=== PATIENT | female | born 1945 | race Caucasian/White ===

== ENCOUNTER 2017-06-19 16:32 | Emergency (ER) | payer SELFPAY ==
[~2017-06-19] VITALS: Ht 165.1 cm; Wt 74.0 kg
[2017-06-19 16:45] VITALS: BP 175/93; PULSE 78; RESP 22; TEMP 98.2; O2SAT 99
--- NOTE | 2017-06-19 17:09 | PD ---
Physical Exam Date Seen by Provider: Jun 19, 2017 Time Seen by Provider: 17:05 Narrative 71 y/o here with Lower back pain since 11 am this am. Radiates into both buttocks. No Weakness. Started with Moving a Portable Sewing machine. Has Hx. Low Back Pain but this is worse. Took 2 ibuprofen without improvement. Has Hx of needing Flexeril in the past with good results. 7/10 pain with movement. Vital signs reviewed. Patient stable. Awaiting Bed placement. Data Data Last Documented VS Vital Signs Date Time Temp Pulse Resp B/P Pulse Ox O2 Delivery O2 Flow Rate FiO2 06/19/17 16:45 98.2 78 22 175/93 99 MDM Medical Record Reviewed: Yes Supervised Visit with BRIDGET: Yes Condition: Stable Raffi Phan Jun 19, 2017 17:09
== END 2017-06-19 19:27 | disposition left against medical advice (07) ==
LOC: NED 16:32
DX: M54.5 Low back pain (principal)
CPT/HCPCS: 99281

== ENCOUNTER 2018-08-22 05:47 | Inpatient (IN) ==
[2018-08-22] MEDS ORDERED: Metoprolol Tartrate 25 MG Tablet PO ONE (06:12)
[2018-08-22] MEDS ORDERED: Chlorhexidine Gluconate 2% 1 Pack (2 Cloths) TOPICAL ONE (06:12)
[2018-08-22] MEDS ORDERED: Gentamicin Inj 120 MG in Sodium Chlor 0.9% Inj 100 ML IV.SIG PRN (06:16)
[2018-08-22] MEDS ORDERED: Sodium Chlor 0.9% Inj 500 ML IV.SIG SCH (07:00)
[2018-08-22] MEDS ORDERED: Phenylephrine/NS 1000 MCG/10ML Syringe IV.PUSH ONE (09:06)
[2018-08-22] MEDS ORDERED: Lidocaine PF 1% Inj 5 ML Syringe OTHER ONE (09:06)
[2018-08-22] MEDS ORDERED: Artificial Tears Opth Oint 3.5 GM Tube ONE (09:36)
[2018-08-22] MEDS ORDERED: Sugammadex Inj 200 MG/2 ML Vial IV.PUSH ONE (09:36)
[2018-08-22] MEDS ORDERED: Estrogens Congugated Vag Cream w/app 30 GM Tube VAGINAL ONE (10:58)
--- NOTE | 2018-08-22 12:44 | P.OP ---
- Preoperative Diagnosis (1) Cystocele and rectocele with incomplete uterovaginal prolapse (2) Family history of ovarian cancer - Postoperative Diagnosis (1) Cystocele and rectocele with incomplete uterovaginal prolapse (2) Family history of ovarian cancer Date of procedure: 08/22/18 Anesthesia: GETA Surgeon: Arsenio Mathur MD Estimated blood loss (mL): 150 Operation and Findings: Findings exam under anesthesia revealed a atrophic vagina with a large cystocele and rectocele. The cervix came down to 2 cm from the introitus. The cervix was nulliparous. The uterus is normal size shape and consistency the adnexa were negative for masses laparoscopic exam revealed a small uterus absent left tube and ovary right tube and ovary were normal for a menopausal patient the ureter on the right side was clearly identified the cul-de-sacs were clean upper abdomen was normal Complications were none Counts were correct Procedure in detail Patient was taken to the operating theater and identified by name band and verbally she was given a general anesthetic intubated and prepped and draped in the usual sterile fashion for a laparoscopic vaginal hysterectomy. A timeout was taken. An examination under anesthesia was carried with a speculum with the above findings. The anterior lip of the cervix was grasped with a single- tooth tenaculum and a Hulka clamp was placed without difficulty. Attention was turned to the umbilical area she had a large incision from the umbilicus to the symphysis pubis in the midline therefore I did not want to go in this area. A small 5 mm incision was made above the umbilicus 3 fingerbreadths. The trocar was inserted inserted under direct vision without difficulty and a pneumoperitoneum was created with 3 L of CO2. The 5 mm trochars were then placed inferior lateral to the umbilicus bilaterally. Using the harmonic scalpel we took the round ligaments down without difficulty. The left ovary and tube were surgically absent and this broad ligament was taken down with a harmonic scalpel to the level of the internal cervical os. On the right side we identified the infundibulopelvic ligament and took this down with the harmonic scalpel after identifying the ureter. The broad ligament on right was then taken down to the level of the internal cervical. And the uterine vessels were taken bilaterally with the harmonic scalpel at the level of the internal cervical loss. The bladder flap was more fully developed and pushed well out of harm's way and the cardinal ligament was taken down with the harmonic scalpel. Once we reached the apex of the vagina a small rent was placed into the vaginal canal. At this point we went below make a circumferential incision around the cervix and the vaginal cuff was closed with 0 Vicryl pop offs. At this point we started the anterior repair 1 cm below the urethra the mucosa was nicked in a sagittal fashion and the mucosa was taken off the endopelvic fascia by sharp and blunt dissection and the mucosa was incised in a sagittal fashion to the level of the vaginal cuff. The endovaginal fascia was then plicated with 2-0 Vicryl in interrupted fashion. Attention was turned to the posterior vaginal wall the perineum was incised in a coronal fashion and the posterior vaginal mucosa was taken off of the endopelvic fascia with blunt and sharp dissection and the incision was carried up to the vaginal cuff. Fascia was then plicated with 2-0 Vicryl in interrupted fashion the excess mucosa was removed and the mucosa was repaired with 3-0 Vicryl in interrupted fashion with good result. Making the introitus a much smaller and hemostasis was excellent the vagina was irrigated large amount of fluid and vaginal packing was placed. At this point we went back to the laparoscope and there was a small rent in the vaginal wall where we could see white Premarin cream coming out. We went below and using the speculum and a 2-0 Vicryl repair this small hole with laparoscopic visualization. We replaced the primary embedded vaginal packing and went up to the laparoscope and irrigated the pelvis with a large amount of fluids. Hemostasis was excellent all surgical sites were dry there appeared to be no more primary exuding into the peritoneal cavity at this time. The laparoscope was removed under direct vision the pneumoperitoneum was released. The surgical incisions were repaired with a 4-0 Monocryl in a subcuticular manner. Patient went to the recovery room in good condition.
[2018-08-22] MEDS ORDERED: HYDROmorphone PF Inj 2 MG/ML Vial IV.PUSH PRN (12:45)
[2018-08-22] MEDS ORDERED: Zolpidem Tartrate 5 MG Tablet PO PRN (12:45)
[2018-08-22] MEDS ORDERED: fentaNYL Citrate Inj 100 MCG/2 ML Ampul ONE ×2 (12:50)
[2018-08-22] MEDS ORDERED: HYDROmorphone PF Inj 2 MG/ML Vial ONE (12:54)
[2018-08-22] MEDS ORDERED: *Meperidine Inj 25 MG/ML Vial PERIprocedural Use ONLY ONE ×2 (12:58→12:59)
[2018-08-22] MEDS: Ibuprofen 600 MG Tablet PO PRN (18:24)
[2018-08-23] MEDS: Ibuprofen 600 MG Tablet PO PRN ×4 (00:53→22:26)
[2018-08-23 05:50] LABS: Baso % (Auto) 0.3 % (0.0-2.0); Eos # (Auto) 0.1 th/mm3 (0.0-0.4); Eos % (Auto) 0.7 % (0.0-4.0); Hematocrit 39.2 % (35.0-46.0); Hemoglobin 13.1 gm/dL (11.6-15.3); Lymph % (Auto) 20.4 % (9.0-44.0); Mean Corpuscular HGB Conc 33.5 % (32.0-36.0); Mean Corpuscular Hemoglobin 28.6 pg (27.0-34.0); Mean Corpuscular Volume 85.3 fL (80.0-100.0); Mono # (Auto) 0.9 th/mm3 (0.0-0.9); Mono % (Auto) 9.5 % (0.0-8.0); Neut # (Auto) 6.9 th/mm3 (1.8-7.7); Neut % (Auto) 69.1 % (16.0-70.0); Platelet Count 183 th/mm3 (150-450); Red Cell Distribution Width 14.1 % (11.6-17.2)
[2018-08-23 06:18] LABS: Calcium 8.4 mg/dL (8.5-10.1); Carbon Dioxide 23.6 meq/L (21.0-32.0); Potassium 3.8 meq/L (3.5-5.1)
--- NOTE | 2018-08-23 10:32 | P.PNOB ---
Subjective Post op day: 1 Objective Vital Signs/I&O: Vital Signs 08/22/18 12:43 08/22/18 12:44 08/22/18 12:45 Temperature 98.1 F Pulse Rate 85 90 87 Respiratory Rate 16 16 Blood Pressure 188/81 H 178/84 H 167/81 H Pulse Oximetry 100 100 100 08/22/18 13:00 08/22/18 13:15 08/22/18 13:30 Temperature Pulse Rate 88 90 90 Respiratory Rate 16 17 17 Blood Pressure 178/82 H 149/69 H 150/69 H Pulse Oximetry 100 99 99 08/22/18 13:45 08/22/18 14:00 08/22/18 14:15 Temperature 98.2 F Pulse Rate 88 93 H Respiratory Rate 17 18 Blood Pressure 143/69 H 142/73 H Pulse Oximetry 100 98 96 08/22/18 14:40 08/22/18 16:16 08/22/18 20:26 Temperature 97.7 F 98.7 F Pulse Rate 82 82 90 Respiratory Rate 20 18 Blood Pressure 160/78 H 145/93 H 144/80 H Pulse Oximetry 97 94 L 08/23/18 00:06 08/23/18 03:45 Temperature 99.4 F 99.3 F Pulse Rate 93 H 89 Respiratory Rate 17 18 Blood Pressure 139/69 147/73 H Pulse Oximetry 94 L 95 Intake & Output 08/22/18 08/23/18 08/23/18 18:59 06:59 18:59 Intake Total 1400 / 1400 1000 / 1000 Output Total 1400 / 1400 1800 / 1800 Balance 0 / 0 -800 / -800 Intake: IV 1000 / 1000 LR 1000 mL Inj 1,000 ML @ 125 1000 / 1000 mls/hr IV.CONT .Q8H [facility] Rx#: [id number] Anesthesia Amount 1400 / 1400 Output: Urine 850 / 850 Estimated Blood Loss 700 / 700 Urine Amount (Catheter) 700 / 700 950 / 950 Indwelling Urethral Catheter 700 / 700 950 / 950 Result Diagrams: 08/23/18 05:16 08/23/18 05:16 Objective Remarks: GENERAL: Well-nourished, well-developed patient. CARDIOVASCULAR: Regular rate and rhythm without murmurs, gallops, or rubs. RESPIRATORY: Breath sounds equal bilaterally. No accessory muscle use. ABDOMEN/GI: Abdomen soft, non-tender, bowel sounds present. Incision: Clean, dry and intact. Srivastava Cath to BSD, clear yellow urine EXTREMITIES: No cyanosis or edema, non-tender, without signs of DVT. Medications and IVs: Active Medications Diphenhydramine HCl (Benadryl) 25 mg PO Q6H PRN PRN Reason: ITCHING Hydromorphone HCl (Dilaudid Pf Inj) 1 mg IV.PUSH Q4H PRN PRN Reason: breakthru pain Last Admin: 08/22/18 14:49 Dose: 1 mg Sodium Chloride (Ns Inj) 500 mls @ 30 mls/hr IV.SIG .Q10H [facility] Last Admin: 08/22/18 09:43 Dose: Not Given Lactated Ringer's (Lr 1000 Ml Inj) 1,000 mls @ 125 mls/hr IV.CONT .Q8H [facility] Last Admin: 08/23/18 06:04 Dose: 125 mls/hr Ibuprofen (Motrin) 600 mg PO Q6H PRN PRN Reason: Pain 1-10 And/Or Fever >101 F Last Admin: 08/23/18 06:56 Dose: 600 mg Miscellaneous Information ([facility] Nursing Information) 0 each OTHER UNSCH PRN PRN Reason: SEE LABEL COMMENTS Stop: 08/23/18 12:44 Ondansetron HCl (Zofran Inj) 4 mg IV.PUSH Q6H PRN PRN Reason: NAUSEA OR VOMITING Oxycodone/Acetaminophen (Percocet 5/325 Mg) 1 tab PO Q4H PRN PRN Reason: PAIN SCALE 1 TO 5 Last Admin: 08/23/18 06:03 Dose: 1 tab Oxycodone/Acetaminophen (Percocet 5/325 Mg) 2 tab PO Q4H PRN PRN Reason: PAIN SCALE 6 TO 10 Sodium Chloride (Ns Flush) 2 ml IV.FLUSH BID [facility] Last Admin: 08/22/18 22:03 Dose: Not Given Sodium Chloride (Ns Flush) 2 ml IV.FLUSH PRN PRN PRN Reason: FLUSH AFTER USING IV ACCESS Zolpidem Tartrate (Ambien) 5 mg PO HS PRN PRN Reason: INSOMNIA Assessment and Plan - Diagnosis (1) S/P laparoscopic assisted vaginal hysterectomy (LAVH) Code(s): Z90.710 - Acquired absence of both cervix and uterus Status: Acute Plan: routine care - Plan POD #1 LAVH/ Oophorectomy, A/P repair pt doing well pain well managed tolerating regular diet, passing flatus vaginal packing removed pt to shower and ambulate today srivastava cath to be removed tomorrow routine care Discharge Planning: consider dc in 2 days
[2018-08-23] MEDS: Senna/Docusate Sodium 8.6/50 MG Tablet PO SCH (18:36)
[2018-08-24] MEDS: Ibuprofen 600 MG Tablet PO PRN ×3 (04:31→20:01)
[2018-08-24] MEDS: Senna/Docusate Sodium 8.6/50 MG Tablet PO SCH ×2 (06:01→18:39)
--- NOTE | 2018-08-24 12:58 | P.PNOB ---
Subjective Post op day: 2 Objective Vital Signs/I&O: Vital Signs 08/23/18 17:50 08/23/18 20:00 08/23/18 23:13 Temperature 99.1 F 98.1 F 98.5 F Pulse Rate 99 H 94 H 85 Respiratory Rate 18 18 18 Blood Pressure 150/70 H 115/73 139/79 Pulse Oximetry 95 97 95 08/24/18 04:30 08/24/18 08:40 Temperature 97.9 F 98.1 F Pulse Rate 82 83 Respiratory Rate 18 Blood Pressure 144/76 H 140/77 Pulse Oximetry 95 96 Intake & Output 08/23/18 08/24/18 08/24/18 18:59 06:59 18:59 Intake Total 1000 / 1000 400 / 400 Output Total 2375 / 2375 1300 / 1300 Balance -1375 / -1375 -900 / -900 Intake: IV 1000 / 1000 LR 1000 mL Inj 1,000 ML @ 125 1000 / 1000 mls/hr IV.CONT .Q8H [facility] Rx#: [id number] Oral 400 / 400 Output: Urine Amount (Catheter) 2375 / 2375 1300 / 1300 Indwelling Urethral Catheter 2375 / 2375 1300 / 1300 Result Diagrams: 08/23/18 05:16 08/23/18 05:16 Objective Remarks: GENERAL: Well-nourished, well-developed patient. CARDIOVASCULAR: Regular rate and rhythm without murmurs, gallops, or rubs. RESPIRATORY: Breath sounds equal bilaterally anterior/ posterior, crackles to lower posterior lobes. No accessory muscle use. ABDOMEN/GI: Abdomen soft, non-tender, bowel sounds present. Incision: dressings, Clean, dry and intact. GENITOURINARY: scant bleeding on pad, srivastava clear urine. EXTREMITIES: No cyanosis or edema, non-tender, without signs of DVT. Medications and IVs: Active Medications Diphenhydramine HCl (Benadryl) 25 mg PO Q6H PRN PRN Reason: ITCHING Hydromorphone HCl (Dilaudid Pf Inj) 1 mg IV.PUSH Q4H PRN PRN Reason: breakthru pain Last Admin: 08/22/18 14:49 Dose: 1 mg Ibuprofen (Motrin) 600 mg PO Q6H PRN PRN Reason: Pain 1-10 And/Or Fever >101 F Last Admin: 08/24/18 04:31 Dose: 600 mg Ondansetron HCl (Zofran Inj) 4 mg IV.PUSH Q6H PRN PRN Reason: NAUSEA OR VOMITING Oxycodone/Acetaminophen (Percocet 5/325 Mg) 1 tab PO Q4H PRN PRN Reason: PAIN SCALE 1 TO 5 Last Admin: 08/24/18 09:46 Dose: 1 tab Oxycodone/Acetaminophen (Percocet 5/325 Mg) 2 tab PO Q4H PRN PRN Reason: PAIN SCALE 6 TO 10 Senna/Docusate Sodium (Anabel-Colace) 1 tab PO Q12H [facility] Last Admin: 08/24/18 06:01 Dose: 1 tab Sodium Chloride (Ns Flush) 2 ml IV.FLUSH BID [facility] Last Admin: 08/23/18 23:40 Dose: Not Given Sodium Chloride (Ns Flush) 2 ml IV.FLUSH PRN PRN PRN Reason: FLUSH AFTER USING IV ACCESS Zolpidem Tartrate (Ambien) 5 mg PO HS PRN PRN Reason: INSOMNIA Assessment and Plan - Diagnosis (1) S/P laparoscopic assisted vaginal hysterectomy (LAVH) Code(s): Z90.710 - Acquired absence of both cervix and uterus Status: Acute Plan: routine care - Plan POD #2 LAVH/ Oophorectomy, A/P repair pt doing well pain well managed incentive spirometer encouraged hourly, pt to get up more today and ambulate and shower tolerating regular diet srivastava cath to be removed tomorrow followed by post residual voids on 2nd/3rd void routine care Discharge Planning: dc home tomorrow if pt able to void without difficulty
[2018-08-24] MEDS ORDERED: Bisacodyl 10 MG Supp RECTAL ONE (15:00)
[2018-08-24] MEDS ORDERED: Bisacodyl 10 MG Supp RECTAL SCH (15:00)
[2018-08-25] MEDS: Ibuprofen 600 MG Tablet PO PRN ×2 (02:02→08:30)
[2018-08-25] MEDS: Senna/Docusate Sodium 8.6/50 MG Tablet PO SCH (05:59)
[2018-08-25 08:45] VITALS: RESP 20
--- NOTE | 2018-08-25 10:00 | P.PNOB ---
Subjective Post op day: 3 Interval history: s/p LAVH/ A&P repair voided 300 cc this am 2nd void 200cc, with 73 cc PVR, will do one more check per dr Mathur otherwise pt doing well, no complaints Objective Vital Signs/I&O: Vital Signs 08/24/18 14:00 08/24/18 20:41 08/24/18 22:40 Temperature 98.1 F 98.2 F Pulse Rate 92 H 106 H Respiratory Rate 20 18 16 Blood Pressure 154/74 H 141/82 H Pulse Oximetry 96 08/25/18 00:00 08/25/18 03:30 08/25/18 03:54 Temperature 99.0 F 98.0 F Pulse Rate 94 H 81 Respiratory Rate 18 16 18 Blood Pressure 122/71 128/69 Pulse Oximetry 08/25/18 08:44 Temperature 97.8 F Pulse Rate 86 Respiratory Rate 20 Blood Pressure 132/78 Pulse Oximetry 95 Intake & Output 08/24/18 08/25/18 08/25/18 18:59 06:59 18:59 Output Total 1700 / 1700 450 / 450 650 / 650 Balance -1700 / -1700 -450 / -450 -650 / -650 Output: Urine Amount (Catheter) 1700 / 1700 450 / 450 650 / 650 Indwelling Urethral Catheter 1700 / 1700 450 / 450 650 / 650 Result Diagrams: 08/23/18 05:16 08/23/18 05:16 Objective Remarks: GENERAL: Well-nourished, well-developed patient. CARDIOVASCULAR: Regular rate and rhythm without murmurs, gallops, or rubs. RESPIRATORY: Breath sounds equal bilaterally. No accessory muscle use. ABDOMEN/GI: Abdomen soft, non-tender, bowel sounds present. Incisions: Clean, dry and intact. GENITOURINARY: Light spotting. EXTREMITIES: No cyanosis or edema, non-tender, without signs of DVT. Medications and IVs: Active Medications Diphenhydramine HCl (Benadryl) 25 mg PO Q6H PRN PRN Reason: ITCHING Hydromorphone HCl (Dilaudid Pf Inj) 1 mg IV.PUSH Q4H PRN PRN Reason: breakthru pain Last Admin: 08/22/18 14:49 Dose: 1 mg Ibuprofen (Motrin) 600 mg PO Q6H PRN PRN Reason: Pain 1-10 And/Or Fever >101 F Last Admin: 08/25/18 08:30 Dose: 600 mg Ondansetron HCl (Zofran Odt) 4 mg SL Q8H PRN PRN Reason: NAUSEA Last Admin: 08/25/18 09:54 Dose: 4 mg Oxycodone/Acetaminophen (Percocet 5/325 Mg) 1 tab PO Q4H PRN PRN Reason: PAIN SCALE 1 TO 5 Last Admin: 08/25/18 02:02 Dose: 1 tab Oxycodone/Acetaminophen (Percocet 5/325 Mg) 2 tab PO Q4H PRN PRN Reason: PAIN SCALE 6 TO 10 Senna/Docusate Sodium (Anabel-Colace) 1 tab PO Q12H [facility] Last Admin: 08/25/18 05:59 Dose: 1 tab Sodium Chloride (Ns Flush) 2 ml IV.FLUSH BID [facility] Last Admin: 08/24/18 20:12 Dose: Not Given Sodium Chloride (Ns Flush) 2 ml IV.FLUSH PRN PRN PRN Reason: FLUSH AFTER USING IV ACCESS Zolpidem Tartrate (Ambien) 5 mg PO HS PRN PRN Reason: INSOMNIA Assessment and Plan - Diagnosis (1) Cystocele and rectocele with incomplete uterovaginal prolapse Code(s): N81.2 - Incomplete uterovaginal prolapse Status: Acute (2) S/P laparoscopic assisted vaginal hysterectomy (LAVH) Code(s): Z90.710 - Acquired absence of both cervix and uterus Status: Acute - Plan POD #3 LAVH/ Oophorectomy, A/P repair pt doing well pain well managed incentive spirometer encouraged hourly, pt to get up more today and ambulate and shower tolerating regular diet srivastava cath removed today followed by post residual voids on 2nd/3rd void routine care Discharge Planning: dc home today if pt able to void without difficulty - Attending Attestation pt seen by me
[2018-08-25 11:58] VITALS: BP 134/76; PULSE 82; TEMP 97.7; O2SAT 96
== END 2018-08-25 12:24 | disposition home or self-care (01) ==
LOC: HSDC 05:47 → HSDI 12:51 → H1EA 14:18
PROVIDERS: ADMIT Obstetrics & Gynecology; ATTEND Obstetrics & Gynecology

== ENCOUNTER 2018-08-28 02:19 | Inpatient (IN) ==
[2018-08-28] MEDS ORDERED: Sod Chloride 0.9% Inj 1,000 ML IV.SIG ONE (02:55)
[2018-08-28 03:28] LABS: Baso % (Auto) 0.6 % (0.0-2.0); Eos # (Auto) 0.2 th/mm3 (0.0-0.4); Eos % (Auto) 4.5 % (0.0-4.0); Hematocrit 43.9 % (35.0-46.0); Hemoglobin 14.4 gm/dL (11.6-15.3); Lymph # (Auto) 0.8 th/mm3 (1.0-4.8); Lymph % (Auto) 18.1 % (9.0-44.0); Mean Corpuscular HGB Conc 32.9 % (32.0-36.0); Mean Corpuscular Hemoglobin 27.7 pg (27.0-34.0); Mean Corpuscular Volume 84.3 fL (80.0-100.0); Mean Platelet Volume 7.5 fL (7.0-11.0); Mono # (Auto) 0.8 th/mm3 (0.0-0.9); Mono % (Auto) 18.1 % (0.0-8.0); Neut # (Auto) 2.5 th/mm3 (1.8-7.7); Neut % (Auto) 58.7 % (16.0-70.0); Platelet Count 302 th/mm3 (150-450); Red Cell Distribution Width 13.9 % (11.6-17.2); White Blood Count 4.2 th/mm3 (4.0-11.0)
[2018-08-28 03:41] LABS: Activated Partial Thrombo Time 25.6 sec (24.3-30.1); Prothrombin Time 10.5 sec (9.8-11.6)
[2018-08-28 03:45] LABS: Alanine Aminotransferase 18 U/L (10-53); Albumin 3.5 g/dL (3.4-5.0); Anion Gap 11 meq/L (5-15); Aspartate Aminotransferase 19 U/L (15-37); Blood Urea Nitrogen 16 mg/dL (7-18); Calcium 9.7 mg/dL (8.5-10.1); Carbon Dioxide 26.9 meq/L (21.0-32.0); Chloride 96 meq/L (98-107); Glomerular Filtration Rate 57 mL/min (>89); Glucose,Random 108 mg/dL (74-106); Lipase 157 U/L (73-393); Potassium 3.4 meq/L (3.5-5.1); Sodium 134 meq/L (136-145)
[2018-08-28 03:49] LABS: Alkaline Phosphatase 51 U/L (45-117); Total Protein 7.7 g/dL (6.4-8.2)
[2018-08-28 03:53] LABS: Creatine Kinase 55 U/L (26-192)
--- NOTE | 2018-08-28 04:14 | ED ---
HPI General Chief complaint: Nausea/Vomiting/Diarrhea Stated complaint: Dr Florentino Time Seen by Provider: 08/28/18 02:52 Source: patient Mode of arrival: ambulatory Limitations: no limitations History of Present Illness HPI narrative: The patient is a 73 year old female who presents to the [facility] emergency department with a history of lap assisted vaginal hysterectomy along with an AP repair on 08/[address] Mathur. She was d/c on Monday. On Monday, she had her first BM. Since Monday at 2PM she has had vomiting every couple of hours. On Monday afternoon, she began to have diarrhea. The stool is dark brown in color. Her emesis when she awoke this AM was green in color. She has not been able to hold down any liquids over the last 24 hours. She has not been on any nausea medication post op. She was on Anabel-colace however she did not take it on Monday night as she has been having diarrhea. She denies having any blood in her stool or mucus in her stool. The patient reports that since awakening this evening with vomiting she has some midepigastric abdominal pain. The patient reports that this is an aching sensation. She reports that it is been constant since it began. On review of systems otherwise, the patient denies having any known recent fevers, cough, congestion, neck pain, chest pain , shortness of breath, urinary symptoms, or neurologic symptoms. Related Data Home Medications Medication Instructions Recorded Confirmed acetaminophen [Tylenol] 500 mg PO Q6HR PRN 08/28/18 08/28/18 docusate sodium [Colace] 100 mg PO BID 08/28/18 08/28/18 Allergies Allergy/AdvReac Type Severity Reaction Status Date / Time Penicillins Allergy Severe Hives Verified 08/17/18 13:40 sulfamethoxazole Allergy Severe Hives Verified 08/17/18 13:40 [From Bactrim] trimethoprim [From Bactrim] Allergy Severe Hives Verified 08/17/18 13:40 morphine Allergy Intermediate HEADACHE Verified 08/17/18 13:24 latex Allergy Rash Verified 08/22/18 06:32 Review of Systems ROS: all other systems reviewed are negative [facility] Medical History Medical History History of hysterectomy (Acute) Hx of endometriosis (Acute) Hx of renal calculi (Acute) Hx of thyroid cyst (Acute) Surgical History Surgical History History of salpingo-oophorectomy (Acute) Hx of appendectomy (Acute) Hx of breast biopsy (Acute) Hx of cataract removal with insertion of prosthetic lens (Acute) Hx of tonsillectomy (Acute) Social History Social History Substance History: No History of Abuse Second Hand Smoke Exposure: No Smoking Status: Never smoker How Often Do You Have a Drink Containing Alcohol: Never Recent Travel in [facility] within the Last 8 Weeks: No Recent Out of Country Travel within the Last 8 Weeks: No Immunization History Tetanus Immunization: <5 Years Exam Const General: cooperative, no acute distress and well developed Nutritional Appearance: well nourished Orientation: alert, awake and oriented x3 HENMT Head: normocephalic and atraumatic Nose: no nasal discharge and no epistaxis Mouth: other (Tacky mucous membranes) Eyes Sclera: normal sclerae Pupils: PERRL Neck Neck: no meningeal signs, trachea midline and no JVD Resp Effort & Inspection: no use of accessory muscles Auscultation: clear to auscultation bilaterally Cardio Rate: tachycardic (Sinus tachycardia in the low 100s, no pulse deficits to the extremities on simultaneous auscultation and palpation of her radial artery.) Rhythm: regular rhythm Heart Sounds: no gallops, no murmurs and no rubs GI Inspection: non-distended Palpation: soft, no hepatosplenomegaly and tender (The patient has 3 laparoscopic incisions with Steri-Strips in place that appear to be healing well without any signs of drainage or erythema.) in the epigastrum; not in the LLQ, not in the RLQ, not in the LUQ, not in the RUQ, not at McBurney's point, not suprapubicly, Vasquez's sign negative, with no rebound tenderness and Rovsing 's sign negative Auscultation: hypoactive bowel sounds Back/Spine/Pelvis Back: no CVA tenderness Skin General: dry skin (warm) Neuro General: alert, awake, oriented x3 and other (Grossly nonfocal) Speech: speech normal Motor: no movement abnormalities noted Extrem General: normal to inspection, no clubbing, no cyanosis and no edema Psych Mood: congruent mood Affect: normal affect Judgment: judgment good Course Reevaluation(s) Reevaluation #1: The patient on reevaluation continued to have a midepigastric abdominal pain. CT scan of the abdomen and pelvis was added to her workup. The patient was given fentanyl for pain. Consultations Consultation #1: The patient's case including history, pertinent physical examination findings, and laboratory studies were discussed with Dr. Mathur. It was agreed that the patient would be admitted to the [facility] service. Initial Documented Vital Signs Temperature 97.7 F 08/28/18 02:26 Pulse Rate 113 H 08/28/18 02:26 Respiratory Rate 18 08/28/18 02:26 Blood Pressure 162/78 H 08/28/18 02:26 Pulse Oximetry 94 L 08/28/18 02:26 Last Documented Vital Signs Temperature 98.6 F 08/28/18 06:08 Pulse Rate 90 08/28/18 06:08 Respiratory Rate 18 08/28/18 06:08 Blood Pressure 155/72 H 08/28/18 06:08 Pulse Oximetry 97 08/28/18 07:46 Medical Decision Making MDM Narrative Medical decision making narrative: During the course of the patient's emergency department visit, the patient's history, examination, and differential diagnosis were reviewed with the patient. The patient was placed on a cardiac cath lab radiology technologist with oximetry and frequent blood pressure monitoring. The patient had IV access obtained and blood work sent for analysis. A diagnostic evaluation was started regarding the patient's abdominal pain with vomiting and diarrhea. The patient was initially provided normal saline 1 L IV fluid bolus, Zofran 4 mg IV, Protonix 40 mg IV. The patient's diagnostic studies are remarkable for normal white count at 4.2, hemoglobin 14.4, platelets 302 with 18.1 monocytes, PT PTT within normal limits , chemistries remarkable for sodium of 134, potassium 3.4, glucose 108, and normal lactic acid, cardiac enzymes within normal limits, lipase within normal limits, urinalysis shows cloudy urine moderate occult blood moderate leukocyte esterase, 4 RBCs, 30 WBCs, few mucus, culture indicated. The patient was given a dose of Rocephin 1 g IV.An abdominal flat and upright reveals pneumoperitoneum , however I suspect that this is just related to the patient being recently postop status post laparoscopy. The patient is noted to have air-fluid levels present centrally within the abdomen. This could be related to an ileus versus obstruction. A CT scan has been ordered. The patient's results were discussed with the patient, including the plan of care. I explained that further testing and/ or monitoring is indicated based on the patient's history, examination, and/ or laboratory findings. Therefore, I recommended admission for additional evaluation. The patient expressed understanding and was agreeable with this plan. The patient was admitted to the hospital in guarded condition and sent to a bed under the care of Dr. Mathur. Medical Screen Exam Complete: Yes Emergency Medical Condition: Yes Differential Diagnosis Differential Diagnosis: Ileus, versus bowel obstruction, versus gastroenteritis , versus dehydration Medical Records Medical records reviewed: Yes I reviewed the patient's medical records. Lab Data Lab results reviewed: Yes I reviewed the patient's lab results. Result diagrams: 08/28/18 03:04 08/28/18 03:04 Lab Results 08/28/18 08/28/18 08/28/18 Range/Units 03:04 03:04 03:04 WBC 4.2 (4.0-11.0) th/mm3 RBC 5.20 (4.00-5.30) mil/mm3 Hgb 14.4 (11.6-15.3) gm/dL Hct 43.9 (35.0-46.0) % MCV 84.3 (80.0-100.0) fL MCH 27.7 (27.0-34.0) pg MCHC 32.9 (32.0-36.0) % RDW 13.9 (11.6-17.2) % Plt Count 302 D (150-450) th/mm3 MPV 7.5 (7.0-11.0) fL Neut % (Auto) 58.7 (16.0-70.0) % Lymph % (Auto) 18.1 (9.0-44.0) % [place] % (Auto) 18.1 H (0.0-8.0) % Eos % (Auto) 4.5 H (0.0-4.0) % Baso % (Auto) 0.6 (0.0-2.0) % Neut # (Auto) 2.5 (1.8-7.7) th/mm3 Lymph # (Auto) 0.8 L (1.0-4.8) th/mm3 [place] # (Auto) 0.8 (0.0-0.9) th/mm3 Eos # (Auto) 0.2 (0.0-0.4) th/mm3 Baso # (Auto) 0.0 (0.0-0.2) th/mm3 WBC Differential . Differential Comment Auto diff final PT 10.5 (9.8-11.6) sec INR 1.0 Ratio APTT 25.6 (24.3-30.1) sec Sodium 134 L (136-145) meq/L Potassium 3.4 L (3.5-5.1) meq/L Chloride 96 L (98-107) meq/L Carbon Dioxide 26.9 (21.0-32.0) meq/L Anion Gap 11 (5-15) meq/L BUN 16 (7-18) mg/dL Creatinine 0.96 (0.50-1.00) mg/dL Estimated GFR 57 L (>89) mL/min Random Glucose 108 H (74-106) mg/dL Lactic Acid (0.4-2.0) mmol/L Calcium 9.7 (8.5-10.1) mg/dL Total Bilirubin 0.8 (0.2-1.0) mg/dL AST 19 (15-37) U/L ALT 18 (10-53) U/L Alkaline Phosphatase 51 (45-117) U/L Total Creatine Kinase 55 (26-192) U/L Troponin I Less than 0.02 L (0.02-0.05) ng/mL Total Protein 7.7 (6.4-8.2) g/dL Albumin 3.5 (3.4-5.0) g/dL Lipase 157 (73-393) U/L Urine Color (Yellw/Straw) Urine Clarity (Clear) Urine pH (5.0-8.5) Ur Specific [place] (1.002-1.035) Urine Protein (Neg-Trace) mg/dL Urine Glucose (UA) (Negative) mg/dL Urine Ketones (Negative) mg/dL Urine Occult Blood (Negative) Urine Nitrate (Negative) Urine Bilirubin (Negative) Urine Urobilinogen (Less than 2) mg/dL Ur Leukocyte Esterase (Negative) Urine RBC (0-3) /hpf Urine WBC (0-5) /hpf Ur Squamous Epith Cells (0-5) /hpf Hyaline Casts (0-3) /lpf Urine Mucus (Occasional) /lpf Micro UA Comment Ur Microscopic Review Urine Culture Comments 08/28/18 08/28/18 Range/Units 03:04 04:03 WBC (4.0-11.0) th/mm3 RBC (4.00-5.30) mil/mm3 Hgb (11.6-15.3) gm/dL Hct (35.0-46.0) % MCV (80.0-100.0) fL MCH (27.0-34.0) pg MCHC (32.0-36.0) % RDW (11.6-17.2) % Plt Count (150-450) th/mm3 MPV (7.0-11.0) fL Neut % (Auto) (16.0-70.0) % Lymph % (Auto) (9.0-44.0) % [place] % (Auto) (0.0-8.0) % Eos % (Auto) (0.0-4.0) % Baso % (Auto) (0.0-2.0) % Neut # (Auto) (1.8-7.7) th/mm3 Lymph # (Auto) (1.0-4.8) th/mm3 [place] # (Auto) (0.0-0.9) th/mm3 Eos # (Auto) (0.0-0.4) th/mm3 Baso # (Auto) (0.0-0.2) th/mm3 WBC Differential Differential Comment PT (9.8-11.6) sec INR Ratio APTT (24.3-30.1) sec Sodium (136-145) meq/L Potassium (3.5-5.1) meq/L Chloride (98-107) meq/L Carbon Dioxide (21.0-32.0) meq/L Anion Gap (5-15) meq/L BUN (7-18) mg/dL Creatinine (0.50-1.00) mg/dL Estimated GFR (>89) mL/min Random Glucose (74-106) mg/dL Lactic Acid 1.1 (0.4-2.0) mmol/L Calcium (8.5-10.1) mg/dL Total Bilirubin (0.2-1.0) mg/dL AST (15-37) U/L ALT (10-53) U/L Alkaline Phosphatase (45-117) U/L Total Creatine Kinase (26-192) U/L Troponin I (0.02-0.05) ng/mL Total Protein (6.4-8.2) g/dL Albumin (3.4-5.0) g/dL Lipase (73-393) U/L Urine Color Yellow (Yellw/Straw) Urine Clarity Cloudy H (Clear) Urine pH 5.0 (5.0-8.5) Ur Specific [place] 1.015 (1.002-1.035) Urine Protein Negative (Neg-Trace) mg/dL Urine Glucose (UA) Negative (Negative) mg/dL Urine Ketones 20 (Negative) mg/dL Urine Occult Blood Moderate H (Negative) Urine Nitrate Negative (Negative) Urine Bilirubin Negative (Negative) Urine Urobilinogen Less than 2 (Less than 2) mg/dL Ur Leukocyte Esterase Moderate H (Negative) Urine RBC 4 H (0-3) /hpf Urine WBC 30 H (0-5) /hpf Ur Squamous Epith Cells 13 (0-5) /hpf Hyaline Casts 3 (0-3) /lpf Urine Mucus Few H (Occasional) /lpf Micro UA Comment Culture indicated Ur Microscopic Review Not Reportable Urine Culture Comments Culture indicated Imaging Data Radiologist's impression: Abdomen X-Ray 08/28/18 04:18 CONCLUSION: Pneumoperitoneum as above. CT scan is recommended if clinically indicated. Discharge Plan Discharge Disposition Patient Disposition: 30 Still Patient Discharge Details Diagnosis: Vomiting, Abdominal pain Physicians Team ED Provider: Lisbeth Alan Primary Care Provider: Arsenio Mathur Attending Provider: Arsenio Mathur Discharge Interventions Interventions: Vital Signs Last Done: 08/28/18 06:08 Status ED Status: Admitted Observation Patient
[2018-08-28] MEDS ORDERED: Pantoprazole Inj 40 MG Vial IV.PUSH ONE (04:18)
[2018-08-28 04:32] LABS: Bilirubin,Urine Negative (Negative); Clarity,Urine Cloudy (Clear); Color,Urine Yellow (Yellw/Straw); Glucose,Urine (UA) Negative (Negative); Hyaline Casts,Urine 3 /lpf (0-3); Leukocyte Esterase,Urine Moderate (Negative); Mucus,Urine Few /lpf (Occasional); Nitrite,Urine Negative (Negative); Specific Gravity,Urine 1.015 (1.002-1.035); Squamous Epithelial Cell,Urine 13 /hpf (0-5)
--- NOTE | 2018-08-28 05:31 | XR ---
EXAM DATE: 08/28/2018 4:18 AM EDT AGE/SEX: 73 years / Female INDICATIONS: Nausea, vomiting, diarrhea, constipation, abdominal pain. CLINICAL DATA: This is the patient's initial encounter. Patient reports that signs and symptoms have been present for 3 days and indicates a pain score of 4/10. MEDICAL/SURGICAL HISTORY: None. Appendectomy. Hysterectomy. COMPARISON: . FINDINGS: Air-fluid levels are present centrally within the abdomen. A pneumoperitoneum is present beneath the right hemidiaphragm. CT scan is recommended if clinically indicated. No organomegaly is seen. There i s elevation of the right hemidiaphragm. CONCLUSION: Pneumoperitoneum as above. CT scan is recommended if clinically indicated. Electronically signed by: Patrick Saldana MD 08/28/2018 5:29 AM EDT
[2018-08-28] MEDS ORDERED: fentaNYL Citrate Inj 100 MCG/2 ML Ampul IV.PUSH ONE (07:11)
--- NOTE | 2018-08-28 08:27 | CT ---
EXAM DATE: 08/28/2018 8:05 AM EDT AGE/SEX: 73 years / Female INDICATIONS: S/P hysterectomy, vomiting for two days.Epigastric pain and lower abdominal pain. CLINICAL DATA: This is the patient's initial encounter. Patient reports that signs and symptoms have been present for 2 days and indicates a pain score of 10/10. MEDICAL/SURGICAL HISTORY: Renal calculi. Hysterectomy. Appendectomy. ORAL CONTRAST: No oral contrast ingested. RADIATION DOSE: 7.77 CTDI (mGy) COMPARISON: [facility], CT ABDOMEN AND PELVIS W/O CONTRAST, 02/02/2018. . TECHNIQUE: Multiple contiguous axial images were obtained through the abdomen and pelvis following b olus infusion of 90 ml Omnipaque 350 (iohexol) nonionic water-soluble contrast as a single exam dos e. No oral contrast ingested. Using automated exposure control and adjustment of the mA and/or kV ac cording to patient size, radiation dose was kept as low as reasonably achievable to obtain optimal di agnostic quality images. DICOM format image data is available electronically for review and comparis on. FINDINGS: LOWER LUNGS: Mild airspace consolidation at the right lung base. LIVER: Stable subcentimeter hypodense lesions in both lobes of the liver. Liver otherwise is uniform in density without intrahepatic ductal dilatation. No calcified gallstones. SPLEEN: Homogeneous density without enlargement. PANCREAS: Unremarkable without mass or calcification. KIDNEYS: Kidneys demonstrate symmetrical enhancement without hydronephrosis. There are multiple prom inent bilateral renal cysts similar to previous exam. Largest on the right measures 7 cm in the anter ior mid right kidney. Largest on the left measures 2.8 cm. Redemonstration of multiple sub-4 mm calyc eal calcifications in the inferior pole of the left kidney. Minimal examination demonstrated a stagho rn calculus in the same region. ADRENAL GLANDS: Unremarkable. AORTA: Tamera-aneurysmal. BOWEL/MESENTERY: There are multiple diffusely distended, measuring up to 4.2 cm, fluid-filled loops of jejunum and ileum with transition point in the very proximal jejunum and distally in the mid to di stal ileum near the right lower quadrant. Very distal and terminal ileal loops are decompressed. Ther e is mild sigmoid and scattered colonic diverticulosis. Colon is largely decompressed. There is a sma ll amount of free intraperitoneal air, presumably postsurgical. There is no pneumatosis or focal drai nable fluid collections. No significant ascites. ABDOMINAL WALL: Intact. RETROPERITONEUM: No evidence of adenopathy in the retrocrural, para-aortic, or deep pelvic regions. BLADDER: Contours are smooth. REPRODUCTIVE: No abnormal masses or calcifications seen. BONY STRUCTURES: Mild degenerative changes of the lower cervical spine. CONCLUSION: 1. Findings most consistent with partial small bowel obstruction with transition points in the very proximal jejunum and mid to distal ileum, potentially due to adhesions. 2. There is a small amount of intraperitoneal free air, presumably postsurgical. No pneumatosis, foc al drainable fluid collections or significant ascites. Correlation is recommended. 3. Mild airspace consolidation in the right lung base, presumably atelectasis. 4. Additional stable ancillary findings, as above. Electronically signed by: Gee Ibarra MD 08/28/2018 8:26 AM EDT
--- NOTE | 2018-08-28 09:49 | P.HP ---
<AndresalemHasmukh - Last Filed: 08/28/18 09:25> History of Present Illness Primary Care Physician: Arsenio Mathur MD Chief Complaint: N/V/D History of Present Illness: Subjective: Ms. NARANJO is a 73 y/o F w/ c/o N/V/D x2 days. She received a LAVH w/ RSO and A&P repair on 08/22 and was d/c on 08/25. She also reports mid-CP without rads that occurs with belching (8/ pain). Denies jaw pain, arm pain, fever, or LOC. She had 3 episodes of vomiting 2 days ago which she describes as "voluminous, dark brown, with pieces of what appeared to be roast beef." She had one episode of "green" vomit earlier today ~1 am. She took pepto but it did not alleviate her symptoms. No recent travel, no similar symptoms in , no recent meals at a restaurant. She states she has been consuming mostly liquids since her procedure. PMH includes renals cysts and stones. PSH includes appendectomy, breast biopsy, cataract removal, and tonsillectomy. Medications include Fosamax and andie-colace. Allergies: various food allergies, penicillins, Bactrim, morphine, and latex. FH is significant for Crohn's in her mother and brother. Father at age 51 due to IA. Objective: Vitals: HR - 90, RR - 18, BP 155/72, pulse ox - 97, Temp 98.6 F Gen: NAD Cardiovascular: normal S1/S2, no perioral cyanosis Respiratory: clear breath sounds all [place] GI: hypoactive bowel sounds in all quadrants Skin: incision from procedure healing well LABS: Chemistry: sodium 134, potassium 3.4, chloride 96, estimated GFR 57, random glucose 108, troponin less than 0.02 (low) Urine: occult blood - moderate, leukocyte esterase - moderate, RBC 4 (high ), WBC 30 (high), urine mucus - few (high) - Diagnosis (1) S/P laparoscopic assisted vaginal hysterectomy (LAVH) (2) Vomiting PMFSH - History History Provided By: Patient - Medical History Medical History: Medical History (Last Reviewed 08/28/18 @ 07:52 by Lisbeth Alan MD) History of hysterectomy Hx of endometriosis Hx of renal calculi Hx of thyroid cyst - Surgical History Surgical History: Surgical History (Last Reviewed 08/28/18 @ 07:52 by Lisbeth Alan MD) History of salpingo-oophorectomy Hx of appendectomy Hx of breast biopsy Hx of cataract removal with insertion of prosthetic lens Hx of tonsillectomy - Tobacco History Second Hand Smoke Exposure: No Smoking Status: Never smoker - Alcohol History How Often Do You Have a Drink Containing Alcohol: Never - Substance Use History Substance History: No History of Abuse - Travel History Recent Travel in the [place] Within the Last 8 Weeks: No Recent Travel Out of the Country Within the Last 8 Weeks: No - Immunization History Tetanus Immunization: <5 Years Medications and Allergies Allergies Allergy/AdvReac Type Severity Reaction Status Date / Time Penicillins Allergy Severe Hives Verified 08/17/18 13:40 sulfamethoxazole Allergy Severe Hives Verified 08/17/18 13:40 [From Bactrim] trimethoprim [From Bactrim] Allergy Severe Hives Verified 08/17/18 13:40 morphine Allergy Intermediate HEADACHE Verified 08/17/18 13:24 latex Allergy Rash Verified 08/22/18 06:32 Home Medications Medication Instructions Recorded Confirmed Type acetaminophen [Tylenol] 500 mg PO Q6HR PRN 08/28/18 08/28/18 History docusate sodium [Colace] 100 mg PO BID 08/28/18 08/28/18 History Active Medications: Active Medications Potassium Chloride 20 meq/ (Sodium Chloride) 1,010 mls @ 150 mls/hr IV.CONT .Q6H44M VISHNU Sodium Chloride (Ns Flush) 2 ml IV.FLUSH PRN PRN PRN Reason: FLUSH AFTER USING IV ACCESS Exam Vital signs: Vital Signs 08/28/18 02:26 08/28/18 06:08 08/28/18 07:46 Temperature 97.7 F 98.6 F Pulse Rate 113 H 90 Respiratory Rate 18 18 Blood Pressure 162/78 H 155/72 H Pulse Oximetry 94 L 97 97 Intake & Output 08/27/18 08/28/18 08/28/18 18:59 06:59 18:59 Intake Total 1000 / 1000 100 / 100 Balance 1000 / 1000 100 / 100 Weight 73.482 kg Intake: IV 1000 / 1000 100 / 100 NS Inj 1,000 ML @ Wide Open IV. 1000 / 1000 SIG BOLUS ONE Rx#:[id number] Rocephin Inj 1,000 MG In NS Inj 100 / 100 100 ML @ 200 mls/hr IV.SIG ONCE ONE Rx#:[id number] Results - Labs CBC & Chem 7: 08/28/18 03:04 08/28/18 03:04 Labs: Laboratory Results - last 24 hr 08/28/18 08/28/18 08/28/18 03:04 03:04 03:04 WBC 4.2 RBC 5.20 Hgb 14.4 Hct 43.9 MCV 84.3 MCH 27.7 MCHC 32.9 RDW 13.9 Plt Count 302 D MPV 7.5 Neut % (Auto) 58.7 Lymph % (Auto) 18.1 [place] % (Auto) 18.1 H Eos % (Auto) 4.5 H Baso % (Auto) 0.6 Neut # (Auto) 2.5 Lymph # (Auto) 0.8 L [place] # (Auto) 0.8 Eos # (Auto) 0.2 Baso # (Auto) 0.0 WBC Differential . Differential Comment Auto diff final PT 10.5 INR 1.0 APTT 25.6 Sodium 134 L Potassium 3.4 L Chloride 96 L Carbon Dioxide 26.9 Anion Gap 11 BUN 16 Creatinine 0.96 Estimated GFR 57 L Random Glucose 108 H Lactic Acid Calcium 9.7 Total Bilirubin 0.8 AST 19 ALT 18 Alkaline Phosphatase 51 Total Creatine Kinase 55 Troponin I Less than 0.02 L Total Protein 7.7 Albumin 3.5 Lipase 157 Urine Color Urine Clarity Urine pH Ur Specific [place] Urine Protein Urine Glucose (UA) Urine Ketones Urine Occult Blood Urine Nitrate Urine Bilirubin Urine Urobilinogen Ur Leukocyte Esterase Urine RBC Urine WBC Ur Squamous Epith Cells Hyaline Casts Urine Mucus Micro UA Comment Ur Microscopic Review Urine Culture Comments 08/28/18 08/28/18 03:04 04:03 WBC RBC Hgb Hct MCV MCH MCHC RDW Plt Count MPV Neut % (Auto) Lymph % (Auto) [place] % (Auto) Eos % (Auto) Baso % (Auto) Neut # (Auto) Lymph # (Auto) [place] # (Auto) Eos # (Auto) Baso # (Auto) WBC Differential Differential Comment PT INR APTT Sodium Potassium Chloride Carbon Dioxide Anion Gap BUN Creatinine Estimated GFR Random Glucose Lactic Acid 1.1 Calcium Total Bilirubin AST ALT Alkaline Phosphatase Total Creatine Kinase Troponin I Total Protein Albumin Lipase Urine Color Yellow Urine Clarity Cloudy H Urine pH 5.0 Ur Specific [place] 1.015 Urine Protein Negative Urine Glucose (UA) Negative Urine Ketones 20 Urine Occult Blood Moderate H Urine Nitrate Negative Urine Bilirubin Negative Urine Urobilinogen Less than 2 Ur Leukocyte Esterase Moderate H Urine RBC 4 H Urine WBC 30 H Ur Squamous Epith Cells 13 Hyaline Casts 3 Urine Mucus Few H Micro UA Comment Culture indicated Ur Microscopic Review Not Reportable Urine Culture Comments Culture indicated - Imaging Impressions Abdomen X-Ray 08/28/18 04:18 CONCLUSION: Pneumoperitoneum as above. CT scan is recommended if clinically indicated. Abdomen/Pelvis CT 08/28/18 07:12 CONCLUSION: 1. Findings most consistent with partial small bowel obstruction with transition points in the very proximal jejunum and mid to distal ileum, potentially due to adhesions. 2. There is a small amount of intraperitoneal free air, presumably postsurgical. No pneumatosis, focal drainable fluid collections or significant ascites. Correlation is recommended. 3. Mild airspace consolidation in the right lung base, presumably atelectasis. 4. Additional stable ancillary findings, as above. Caprini VTE Risk Assessment Caprini Risk Assessment Model: Point Value = 1 Point Value = 2 Point Value = 3 Point Value = 5 Age 41-60 Minor surgery BMI > 25 kg/m2 Swollen legs Varicose veins or History of unexplained or recurrent spontaneous Oral contraceptives or hormone replacement Sepsis (< 1 month) Serious lung disease, including pneumonia (< 1 month) Abnormal pulmonary function Acute myocardial infarction Congestive heart failure (< 1 month) History of inflammatory bowel disease Medical patient at bed rest Age 61-74 Arthroscopic surgery Major open surgery (> 45 min) Laparoscopic surgery (> 45 min) Malignancy Confined to bed (> 72 hours) Immobilizing plaster cast Central venous access Age >= 75 History of VTE Family history of VTE Factor V Leiden Prothrombin [id number] Lupus anticoagulant Anticardiolipin antibodies Elevated serum homocysteine Heparin-induced thrombocytopenia Other congenital or acquired thrombophilia Stroke (< 1 month) Elective arthroplasty Hip, pelvis, or leg fracture Acute spinal cord injury (< 1 month) Prophylaxis Regimen: Total Risk Factor Score Risk Level Prophylaxis Regimen 0-1 Low Early ambulation 2 Moderate Order ONE of the following: *Sequential Compression Device (SCD) *Heparin 5000 units SQ BID 3-4 Higher Order ONE of the following medications: *Heparin 5000 units SQ TID *Enoxaparin/Lovenox 40 mg SQ daily (WT < 150 kg, CrCl > 30 mL/min) *Enoxaparin/Lovenox 30 mg SQ daily (WT < 150 kg, CrCl > 10-29 mL/min) *Enoxaparin/Lovenox 30 mg SQ BID (WT < 150 kg, CrCl > 30 mL/min) AND/OR *Sequential Compression Device (SCD) 5 or more Highest Order ONE of the following medications: *Heparin 5000 units SQ TID (Preferred with Epidurals) *Enoxaparin/Lovenox 40 mg SQ daily (WT < 150 kg, CrCl > 30 mL/min) *Enoxaparin/Lovenox 30 mg SQ daily (WT < 150 kg, CrCl > 10-29 mL/min) *Enoxaparin/Lovenox 30 mg SQ BID (WT < 150 kg, CrCl > 30 mL/min) AND *Sequential Compression Device (SCD) Assessment and Plan - Assessment (1) S/P laparoscopic assisted vaginal hysterectomy (LAVH) Code(s): Z90.710 - Acquired absence of both cervix and uterus Status: Acute (2) Vomiting Code(s): R11.10 - Vomiting, unspecified Status: Acute <Arsenio Mathur - Last Filed: 09/19/18 08:52> History of Present Illness 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 Primary Care Physician: Arsenio Mathur MD - Diagnosis (1) Ileus, postoperative (2) Vomiting PMFSH - Medical History Medical History: Medical History (Last Reviewed 08/28/18 @ 07:52 by Lisbeth Alan MD) History of hysterectomy Hx of endometriosis Hx of renal calculi Hx of thyroid cyst - Surgical History Surgical History: Surgical History (Last Reviewed 08/28/18 @ 07:52 by Lisbeth Alan MD) History of salpingo-oophorectomy Hx of appendectomy Hx of breast biopsy Hx of cataract removal with insertion of prosthetic lens Hx of tonsillectomy Medications and Allergies Active Medications: Active Medications Potassium Chloride 20 meq/ (Sodium Chloride) 1,010 mls @ 150 mls/hr IV.CONT .Q6H44M [facility] Last Admin: 08/28/18 17:36 Dose: 150 mls/hr Sodium Chloride (Ns Flush) 2 ml IV.FLUSH PRN PRN PRN Reason: FLUSH AFTER USING IV ACCESS Exam Vital signs: Vital Signs 08/28/18 02:26 08/28/18 06:08 08/28/18 07:46 Temperature 97.7 F 98.6 F Pulse Rate 113 H 90 Respiratory Rate 18 18 Blood Pressure 162/78 H 155/72 H Pulse Oximetry 94 L 97 97 08/28/18 10:27 08/28/18 13:32 08/28/18 15:48 Temperature 98.6 F Pulse Rate 114 H 97 H 90 Respiratory Rate 18 20 18 Blood Pressure 170/83 H 154/73 H 133/83 Pulse Oximetry 98 98 87 L 08/28/18 16:00 Temperature 98.7 F Pulse Rate 98 H Respiratory Rate 16 Blood Pressure 141/74 H Pulse Oximetry 95 Intake & Output 08/27/18 08/28/18 08/28/18 18:59 06:59 18:59 Intake Total 1000 / 1000 1110 / 1110 Balance 1000 / 1000 1110 / 1110 Weight 73.482 kg Intake: IV 1000 / 1000 1110 / 1110 KCl Inj 20 MEQ In 1/2 Normal 1010 / 1010 Saline Inj 1,000 ML @ 150 mls/ hr IV.CONT .Q6H44M VISHNU Rx#: [id number] NS Inj 1,000 ML @ Wide Open IV. 1000 / 1000 SIG BOLUS ONE Rx#:[id number] Rocephin Inj 1,000 MG In NS Inj 100 / 100 100 ML @ 200 mls/hr IV.SIG ONCE ONE Rx#:[id number] Results - Labs CBC & Chem 7: 08/28/18 03:04 08/29/18 11:02 Labs: Laboratory Results - last 24 hr 08/28/18 08/28/18 08/28/18 03:04 03:04 03:04 WBC 4.2 RBC 5.20 Hgb 14.4 Hct 43.9 MCV 84.3 MCH 27.7 MCHC 32.9 RDW 13.9 Plt Count 302 D MPV 7.5 Neut % (Auto) 58.7 Lymph % (Auto) 18.1 [place] % (Auto) 18.1 H Eos % (Auto) 4.5 H Baso % (Auto) 0.6 Neut # (Auto) 2.5 Lymph # (Auto) 0.8 L [place] # (Auto) 0.8 Eos # (Auto) 0.2 Baso # (Auto) 0.0 WBC Differential . Differential Comment Auto diff final PT 10.5 INR 1.0 APTT 25.6 Sodium 134 L Potassium 3.4 L Chloride 96 L Carbon Dioxide 26.9 Anion Gap 11 BUN 16 Creatinine 0.96 Estimated GFR 57 L Random Glucose 108 H Lactic Acid Calcium 9.7 Total Bilirubin 0.8 AST 19 ALT 18 Alkaline Phosphatase 51 Total Creatine Kinase 55 Troponin I Less than 0.02 L Total Protein 7.7 Albumin 3.5 Lipase 157 Urine Color Urine Clarity Urine pH Ur Specific [place] Urine Protein Urine Glucose (UA) Urine Ketones Urine Occult Blood Urine Nitrate Urine Bilirubin Urine Urobilinogen Ur Leukocyte Esterase Urine RBC Urine WBC Ur Squamous Epith Cells Hyaline Casts Urine Mucus Micro UA Comment Ur Microscopic Review Urine Culture Comments 08/28/18 08/28/18 03:04 04:03 WBC RBC Hgb Hct MCV MCH MCHC RDW Plt Count MPV Neut % (Auto) Lymph % (Auto) [place] % (Auto) Eos % (Auto) Baso % (Auto) Neut # (Auto) Lymph # (Auto) [place] # (Auto) Eos # (Auto) Baso # (Auto) WBC Differential Differential Comment PT INR APTT Sodium Potassium Chloride Carbon Dioxide Anion Gap BUN Creatinine Estimated GFR Random Glucose Lactic Acid 1.1 Calcium Total Bilirubin AST ALT Alkaline Phosphatase Total Creatine Kinase Troponin I Total Protein Albumin Lipase Urine Color Yellow Urine Clarity Cloudy H Urine pH 5.0 Ur Specific [place] 1.015 Urine Protein Negative Urine Glucose (UA) Negative Urine Ketones 20 Urine Occult Blood Moderate H Urine Nitrate Negative Urine Bilirubin Negative Urine Urobilinogen Less than 2 Ur Leukocyte Esterase Moderate H Urine RBC 4 H Urine WBC 30 H Ur Squamous Epith Cells 13 Hyaline Casts 3 Urine Mucus Few H Micro UA Comment Culture indicated Ur Microscopic Review Not Reportable Urine Culture Comments Culture indicated - Imaging Impressions Abdomen X-Ray 08/28/18 04:18 CONCLUSION: Pneumoperitoneum as above. CT scan is recommended if clinically indicated. Abdomen/Pelvis CT 08/28/18 07:12 CONCLUSION: 1. Findings most consistent with partial small bowel obstruction with transition points in the very proximal jejunum and mid to distal ileum, potentially due to adhesions. 2. There is a small amount of intraperitoneal free air, presumably postsurgical. No pneumatosis, focal drainable fluid collections or significant ascites. Correlation is recommended. 3. Mild airspace consolidation in the right lung base, presumably atelectasis. 4. Additional stable ancillary findings, as above. Caprini VTE Risk Assessment Caprini VTE Risk Assessment: No/Low Risk (score <= 1) Caprini Risk Assessment Model: Point Value = 1 Point Value = 2 Point Value = 3 Point Value = 5 Age 41-60 Minor surgery BMI > 25 kg/m2 Swollen legs Varicose veins or History of unexplained or recurrent spontaneous Oral contraceptives or hormone replacement Sepsis (< 1 month) Serious lung disease, including pneumonia (< 1 month) Abnormal pulmonary function Acute myocardial infarction Congestive heart failure (< 1 month) History of inflammatory bowel disease Medical patient at bed rest Age 61-74 Arthroscopic surgery Major open surgery (> 45 min) Laparoscopic surgery (> 45 min) Malignancy Confined to bed (> 72 hours) Immobilizing plaster cast Central venous access Age >= 75 History of VTE Family history of VTE Factor V Leiden Prothrombin [id number] Lupus anticoagulant Anticardiolipin antibodies Elevated serum homocysteine Heparin-induced thrombocytopenia Other congenital or acquired thrombophilia Stroke (< 1 month) Elective arthroplasty Hip, pelvis, or leg fracture Acute spinal cord injury (< 1 month) Prophylaxis Regimen: Total Risk Factor Score Risk Level Prophylaxis Regimen 0-1 Low Early ambulation 2 Moderate Order ONE of the following: *Sequential Compression Device (SCD) *Heparin 5000 units SQ BID 3-4 Higher Order ONE of the following medications: *Heparin 5000 units SQ TID *Enoxaparin/Lovenox 40 mg SQ daily (WT < 150 kg, CrCl > 30 mL/min) *Enoxaparin/Lovenox 30 mg SQ daily (WT < 150 kg, CrCl > 10-29 mL/min) *Enoxaparin/Lovenox 30 mg SQ BID (WT < 150 kg, CrCl > 30 mL/min) AND/OR *Sequential Compression Device (SCD) 5 or more Highest Order ONE of the following medications: *Heparin 5000 units SQ TID (Preferred with Epidurals) *Enoxaparin/Lovenox 40 mg SQ daily (WT < 150 kg, CrCl > 30 mL/min) *Enoxaparin/Lovenox 30 mg SQ daily (WT < 150 kg, CrCl > 10-29 mL/min) *Enoxaparin/Lovenox 30 mg SQ BID (WT < 150 kg, CrCl > 30 mL/min) AND *Sequential Compression Device (SCD) Assessment and Plan - Assessment (1) Ileus, postoperative Code(s): K91.89 - Other postprocedural complications and disorders of digestive system; K56.7 - Ileus, unspecified Status: Acute Plan: 1) Continue IV fluids and bowel rest. This may be a partial SBO per CT scan. Will also consult GI MD. Will follow closely. 2) Zofran only if needed. 3) Re-check chemistry panel in 24 hours (2) Vomiting Code(s): R11.10 - Vomiting, unspecified Status: Acute <Arsenio Mathur - Last Filed: 09/19/18 08:52> (2) Vomiting Qualifiers: Vomiting type: bilious vomiting Nausea presence: with nausea Qualified Code( s): R11.14 - Bilious vomiting
[2018-08-28] MEDS: Potassium Chloride Inj 20 MEQ in Sodium Chloride 0.45 % Inj 1,000 ML IV.CONT SCH ×2 (09:50→17:36)
[2018-08-28] MEDS ORDERED: Aluminum/Magnesium/Simethacone Susp 30 ML UDC PO PRN (18:03)
--- NOTE | 2018-08-28 18:42 | MH ---
cc: Daria Mathur MD DATE OF ADMISSION: 08/28/2018 HISTORY OF PRESENT ILLNESS: Ms. Thomson is a 73-year-old white female who had a LAVH and anterior and posterior repair 6 days ago. She was discharged home in her usual state of good health 3 days later. She was voiding well and was doing well at that time. Monday night, she began to have some episodes of nausea and vomiting, which subsided. She called Monday the office and was doing better. She called me early this morning and she was vomiting green material and feeling terrible and I told her to report to the ER. She comes here for treatment. She has had this nausea and vomiting for several days. She has been taking only fluids. She tried Pepto-Bismol but it did not relieve her symptoms. No one else is sick at home. No signs of infection. PAST MEDICAL HISTORY: Remarkable for a cystocele and rectocele and the pelvic prolapse. She had a cyst on her thyroid. She had a urinary tract infection, osteoporosis, history of kidney stones and atrophic vaginitis. PAST SURGICAL HISTORY: She had a left salpingo-oophorectomy via a laparotomy and ovarian cystectomy, needle biopsy of the right breast, tonsillectomy, lumpectomy of the thyroid, laparoscopic removal of kidney stone and a laparoscopic-assisted vaginal hysterectomy with right salpingo-oophorectomy and anterior and posterior repair. PAST OBSTETRICAL HISTORY: She is para 0-0-0-0. FAMILY HISTORY: Father and grandparents with stroke. Heart disease in her father. High blood pressure in her mother. SOCIAL HISTORY: She is . She does not smoke, drink alcohol or take drugs. CURRENT MEDICATIONS: Coming to the hospital where Motrin. She takes some supplements as well. ALLERGIES: PENICILLINS, SULFA, MORPHINE AND LASIX. REVIEW OF SYSTEMS: She is having some chest discomfort from the vomiting. She has no jaw pain or shoulder pain associated with this. No pressure, chest burning. She has no shortness of breath. She is complaining of abdominal distention. She is having vomiting and diarrhea recently. She is having a little bit of vaginal spotting, but this is mild. PHYSICAL EXAMINATION: GENERAL: Reveals well-developed, well-nourished female in mild distress, resting comfortably on the gurney. HEENT: Normocephalic, atraumatic. NECK: Supple. Trachea is in the midline. CHEST: Clear to auscultation. HEART: Regular rate and rhythm. ABDOMEN: Distended. There are hypoactive bowel sounds. There is no tinkling sounds reminiscent of a small-bowel obstruction. She is nontender in the abdomen. PELVIC: Deferred. EXTREMITIES: No clubbing, cyanosis or edema. ASSESSMENT AND PLAN: 1. Postoperative ileus. She had a CT scan and a KUB. I will go look at those films. They calling it may be a small-bowel obstruction; however, this is awfully relatively high up and I would not expect there would be any adhesions or problems in this area. I will go ahead and put her on a clear liquid diet, give her some intravenous fluids, hydrate her up and replace her potassium. 2. Hypokalemia. I will go ahead and replace that and we will check that sometime tomorrow. 3. Severe heartburn. I will give her some Maalox and start her on some Zantac or Tagamet, depending on what they have at the hospital. R. MD KEIKO Napoles/braydon , 06:00 PM , 06:12 PM
[2018-08-28] MEDS: Famotidine 20 MG Tablet PO SCH (20:33)
[2018-08-28] MEDS: Zolpidem Tartrate 5 MG Tablet PO PRN (20:34)
[2018-08-29] MEDS: Potassium Chloride Inj 20 MEQ in Sodium Chloride 0.45 % Inj 1,000 ML IV.CONT SCH ×4 (00:45→21:10)
[2018-08-29] MEDS: Famotidine 20 MG Tablet PO SCH ×2 (09:35→21:10)
--- NOTE | 2018-08-29 12:16 | P.PNOB ---
Progress Note: A/P (1) Ileus, postoperative Status: Acute Code(s): K91.89 - Other postprocedural complications and disorders of digestive system; K56.7 - Ileus, unspecified Current Visit: Yes (2) Vomiting Status: Acute Code(s): R11.10 - Vomiting, unspecified Qualifiers: Vomiting type: bilious vomiting Nausea presence: with nausea Qualified Code(s): R11.14 - Bilious vomiting Current Visit: Yes - Plan PT FEELING BETTER DENIES NAUSEA OR MID STERNAL PAIN (RELIEVED WITH MAALOX) WILL TRY SIPS OF CLEARS LAST DIARRHEA AT 7:30 AM, WILL COLLECT A SAMPLE NEXT BM, DENIES ABDOMINAL PAIN AMBULATING AND VOIDING WITHOUT DIFFICULTY BMP ORDERED GI CONSULT TO BE DONE TODAY ROUTINE CARE - Time Spent With Patient Total time spent is greater than 50% in coordination of care (as documented) at patient's floor/unit and/or counseling patient: less than 15 minutes Physical Exam Vital signs: Temp Pulse Resp BP Pulse Ox 97.8 F 79 18 148/74 H 95 08/29/18 08:00 08/29/18 08:00 08/29/18 08:00 08/29/18 08:00 08/29/18 08:00 - Constitutional no acute distress - Routine Respiratory Exam Present: CTA bilaterally - Routine Cardiovascular Exam Present: RRR, S1, S2 - Routine Abdominal Exam Present: soft, surgical scars Comments: STERI STRIPS ON INCISIONS, HEALING NICELY ABD SOFT NONTENDER HYPERACTIVE BS - Routine Exam Comments: VOIDING WITHOUT DIFFICULTY - Detailed Neurological Exam: Coma Scale Eye Opening: Spontaneous Verbal Response: Oriented Results - Labs CBC & Chem 7: 08/28/18 03:04 08/28/18 03:04
[2018-08-29 12:20] LABS: Anion Gap 10 meq/L (5-15); Blood Urea Nitrogen 8 mg/dL (7-18); Calcium 8.5 mg/dL (8.5-10.1); Carbon Dioxide 19.6 meq/L (21.0-32.0); Chloride 107 meq/L (98-107); Glomerular Filtration Rate Greater Than 89 mL/min (>89); Glucose,Random 85 mg/dL (74-106); Potassium 3.7 meq/L (3.5-5.1); Sodium 137 meq/L (136-145)
--- NOTE | 2018-08-29 18:31 | MB ---
cc: Anthony Atkinson MD DATE: 08/29/2018 REASON FOR CONSULTATION: I was asked to see this patient by Dr. Mathur for evaluation of nausea, vomiting, diarrhea and abnormal CT scan. HISTORY OF PRESENT ILLNESS: The patient is a pleasant 73-year-old white female who states she had a normal colonoscopy this May done by Dr. De La Torre. Previously, she had colon polyps, but has not had any history of diverticulosis,or colitis. She has been on numerous antibiotics for UTIs, thought related to a kidney stone. She has also had several abdominal operations. The latest one was last week - she had a laparoscopic-assisted vaginal hysterectomy with a right salpingo-oophorectomy and anterior peritoneal repair. She went home and was doing reasonably well. However, yesterday she had increasing upper abdominal pain, followed by several episodes of vomiting that was basically food and then she continued vomiting and it became bilious - no blood. She did mention dark brown material, but she believes it was more roast beef she ate than anything else. She has also had several episodes of diarrhea on and off and eventually a stool sent off and she was C. difficile positive. Abdominal x-ray showed pneumoperitoneum and a CT scan also revealed pneumoperitoneum, but there is also possibility of a partial small-bowel obstruction. We have been asked to comment on all these situations. The patient denies any dysphagia, odynophagia or steady heartburn. No melena, hematochezia or diarrhea. Her vomiting has resolved. She still feels nauseous. Her abdominal pain is better. Her bowels have slowed down, she states. PAST MEDICAL HISTORY: Encephalopathy. Endometriosis. Thyroid cyst. Renal calculi . She said lactose intolerance colon polyp mentioned above. PAST SURGICAL HISTORY: Surgery as mentioned above. She has also had endometriosis surgery. Renal calculi, with stenting in her ureter. She has thyroid cyst surgery. She had breast biopsy, appendectomy, cataracts, tonsillectomy. SOCIAL HISTORY: Does not smoke, never did. She does not drink alcohol. ALLERGIES: PENICILLIN, BACTRIM, MORPHINE AND LATEX. FAMILY HISTORY: Significant for father and brother with some type of colitis. Crohn disease seemed familiar to her, but she was not sure whether that her mother and brother had Crohns or not. No one in the family had colon cancer or colon polyps. REVIEW OF SYSTEMS: GENERAL: No weight loss, fever or chills. CARDIOPULMONARY: No chest pain today, or palpitation, wheezing, shortness of breath. GASTROINTESTINAL: Please see above. Otherwise, unremarkable 12-point review of systems. MEDICATIONS IN THE HOSPITAL: Include: 1. Pepcid. 2. Simethicone. 3. Potassium IV. 4. Phenergan. 5. Ambien. PHYSICAL EXAMINATION: VITAL SIGNS: Blood pressure 140/74, pulse is 79, respiratory 18, temperature 97.8. GENERAL: She is an overweight female, resting comfortably at this time. In no acute distress. HEENT: Her pupils equal, round, reactive to light. No obvious scleral icterus. Oropharyngeal cavity shows dental caries. No tongue deviation or Candidal lesions . Hearing is intact. NECK: Supple thyromegaly or lymphadenopathy. No scars. HEART: Regular rate and rhythm. No gross murmurs are heard. ABDOMEN: Soft, mild tenderness in lower abdomen. Bowel sounds are present throughout. No organ masses. No ascites, or hernias. There is some tenderness in the incision site, but again no rebound tenderness. No obvious ascites. RECTAL: Not done. EXTREMITIES: No cyanosis or edema. NEUROLOGIC: Her cranial 2-12 are grossly intact. SKIN: Warm and moist. She is alert and oriented x 3. DATA BASE: Laboratory work revealed C. difficile DNA positive. C. difficile toxin/Epi 027 positive. White blood count 4200, hemoglobin 14.4, hematocrit 43.9, MCV 84.3, platelet count of 302,000. Her prothrombin time 10.5, INR 1.0, PTT of 25.6. Potassium 3.4 on admission, now 3.7, BUN of 8, creatinine 0.58. SGOT of 19, SGPT 18, alkaline phosphatase 51, total bilirubin 0.8, lipase 157, which is normal. Albumin 3.5 is normal. Total protein 7.7, which is normal in appearance. Abdominal x-ray done yesterday as mentioned above, revealed pneumoperitoneum. Subsequent CT scan also showed pneumoperitoneum, but the findings were most consistent with a partial small-bowel obstruction with transition points in the very proximal jejunum and mid to distal ileum - it was thought this could be potentially due to adhesions. There was a small amount of free intraperitoneal air, but there is no pneumatosis or drainable fluid collections or ascites or abscesses. There is some atelectasis noted. The colon is large and decompressed. The renal cysts are noted and kidney stones also noted. IMPRESSION: 1. Abnormal CT scan - this is a partial small-bowel obstruction. I explained to her in detail what this could be. I suspect indeed this could very well be due to adhesions, sometimes ileus presents the same way. However, I did review this with the radiologist and believe there is a partial small-bowel obstruction due to adhesions. 2. Clostridium difficile positive stools. 3. Nausea, vomiting, and diarrhea. This could be related to the above processes. 4. History of colon polyps - the patient had colonoscopy 05/[address] De La Torre. No polyps were noted. 5. Recent abdominal surgery. 6. History of frequent antibiotic usage for her urinary tract infections. RECOMMENDATIONS: 1. The first line treatment for Clostridium difficile at this time is vancomycin or Dificid, both orally given medications. The patient does not think she can tolerate a lot of oral medications other than she is already taking. Therefore, we will start her with IV Flagyl and see how she does and soon she can tolerate more by mouth, we can transition her to vancomycin or Dificid. 2. Bowel rest as much as possible. 3. We did talk about NG tube, but she feels better. We can hold this at this time; however, if her nausea returns or persist, we will have to place an NG tube. 4. If symptoms worsen, we will have to get a general surgeon involved. 5. I discussed with Dr. Mathur. MD JOSÉ ANTONIO Harrison/shira , 04:37 PM , 04:56 PM
[2018-08-29] MEDS: Zolpidem Tartrate 5 MG Tablet PO PRN (22:27)
[2018-08-30] MEDS: Potassium Chloride Inj 20 MEQ in Sodium Chloride 0.45 % Inj 1,000 ML IV.CONT SCH ×4 (05:32→23:52)
[2018-08-30] MEDS: Famotidine 20 MG Tablet PO SCH ×3 (08:04→20:54)
--- NOTE | 2018-08-30 08:43 | P.PNGI ---
Subjective Interval history: Patient states she no longer has diarrhea. Stools are still liquid to semisolid. No blood in stool. No nausea vomiting. She tolerated clear liquids quite well. She has some abdominal bloating after he eats but no abdominal distention. She believes now her brother may have had C. difficile colitis Physical Exam Vital signs: Vital Signs 08/29/18 12:00 08/29/18 16:00 08/29/18 20:00 Temperature 98.8 F 97.8 F 98 F Pulse Rate 83 90 89 Respiratory Rate 18 19 17 Blood Pressure 161/79 H 167/82 H 161/86 H Pulse Oximetry 96 98 97 08/30/18 00:00 08/30/18 04:00 08/30/18 06:59 Temperature 97.9 F 97.9 F Pulse Rate 81 77 Respiratory Rate 16 20 12 Blood Pressure 167/84 H 173/81 H Pulse Oximetry 96 96 Intake & Output 08/29/18 08/30/18 08/30/18 18:59 06:59 18:59 Intake Total 2960 / 2960 1110 / 1110 Balance 2960 / 2960 1110 / 1110 Intake: IV 2120 / 2120 1110 / 1110 KCl Inj 20 MEQ In 1/2 Normal 2020 / 2020 1010 / 1010 Saline Inj 1,000 ML @ 150 mls/ hr IV.CONT .Q6H44M VISHNU Rx#: [id number] Flagyl 500 MG Inj 100 ML @ 100 100 / 100 100 / 100 mls/hr IV.SIG Q8H VISHNU Rx#: [id number] Oral 840 / 840 Other: # Voids 2 Date of Last Bowel Movement 08/29/18 08/30/18 08/29/18 # Bowel Movements 1 - Constitutional no acute distress - Routine Neck Exam Present: supple - Routine Respiratory Exam Present: CTA bilaterally - Routine Abdominal Exam Present: soft, normoactive bowel sounds. Absent: tenderness, distended, rebound - Routine Extremities Exam Absent: cyanosis - Routine Neurological Exam Present: alert, oriented X3 Results - Labs CBC & Chem 7: 08/28/18 03:04 08/29/18 11:02 Laboratory Results - last 24 hr 08/29/18 08/29/18 11:02 12:00 Sodium 137 Potassium 3.7 Chloride 107 D Carbon Dioxide 19.6 L Anion Gap 10 BUN 8 Creatinine 0.58 Estimated GFR Greater than 89 Random Glucose 85 Calcium 8.5 D Stool C.difficile Ag Negative Stool C.difficile Toxin Negative Stl C.difficile DNA Amp Positive H St C. diff Tox Epid 027 Positive H Microbiology 08/29/18 12:00 Stool Stool for WBCs - Final Rare WBC's 08/28/18 04:03 Clean Catch Urine Urine Culture - Final 50-100,000 cfu/mL mixed dieter (probable contaminants ) Assessment and Plan - Attending Attestation IMPRESSION: 1. Abnormal CT scan - this is a partial small-bowel obstruction. 2. Clostridium difficile positive stools. 3. Nausea, vomiting, and diarrhea. Better 4. History of colon polyps - the patient had colonoscopy 05/[address] De La Torre. No polyps were noted. 5. Recent abdominal surgery. 6. History of frequent antibiotic usage for her urinary tract infections. 7. Patient also states that her brother may have had C. difficile colitis RECOMMENDATIONS: 1. Continue IV Flagyl for now 2. Discussed advancing diet to full liquids but she is lactose intolerance and she just wants clear liquid for now. In the future if se does well she is willing to try a pured diet 3. Hold off an NG since she has improved 4. If symptoms worsen, we will have to get a general surgeon involved.
--- NOTE | 2018-08-30 15:55 | P.PNOB ---
Progress Note: A/P (1) S/P laparoscopic assisted vaginal hysterectomy (LAVH) Code(s): Z90.710 - Acquired absence of both cervix and uterus Current Visit: No (2) Vomiting Status: Acute Code(s): R11.10 - Vomiting, unspecified Qualifiers: Qualified Code(s): R11.14 - Bilious vomiting Current Visit: Yes - Plan Pt improving Continue fluids Pt tolerating clears, will advance diet slowly Possible small bowel obstruction, unrelated to surgery Will f/u with GI - Time Spent With Patient Total time spent is greater than 50% in coordination of care (as documented) at patient's floor/unit and/or counseling patient: Subjective Interval history: Documentation of this patient encounter should include: * Reason for the encounter * Relevant history Physical Exam Vital signs: Temp Pulse Resp BP Pulse Ox 98.4 F 82 18 152/80 H 96 08/30/18 12:00 08/30/18 12:00 08/30/18 12:00 08/30/18 12:00 08/30/18 12:00 Results - Labs CBC & Chem 7: 08/28/18 03:04 08/29/18 11:02 Labs: Laboratory Results - last 24 hr 08/29/18 12:00 Stool C.difficile Ag Negative Stool C.difficile Toxin Negative
[2018-08-30] MEDS: Zolpidem Tartrate 5 MG Tablet PO PRN (20:49)
[2018-08-31] MEDS: Potassium Chloride Inj 20 MEQ in Sodium Chloride 0.45 % Inj 1,000 ML IV.CONT SCH ×3 (02:32→08:49)
[2018-08-31] MEDS: Famotidine 20 MG Tablet PO SCH ×2 (08:03→21:00)
--- NOTE | 2018-08-31 08:35 | P.PNOB ---
Progress Note: A/P (1) S/P laparoscopic assisted vaginal hysterectomy (LAVH) Code(s): Z90.710 - Acquired absence of both cervix and uterus Current Visit: No (2) Vomiting Status: Acute Code(s): R11.10 - Vomiting, unspecified Current Visit: Yes - Plan Pt improving, states her BM's (last episode was early AM) have been more solid and reports no vomiting Encouraged to get out of bed more and use incentive spirometer hourly Urinating "every few hours Continue fluids Pt tolerating clears, she is being advanced to puree diet Possible small bowel obstruction, unrelated to surgery Will f/u with GI GI will switch patient from IV to oral antibiotics - Time Spent With Patient Total time spent is greater than 50% in coordination of care (as documented) at patient's floor/unit and/or counseling patient: <Hasmukh Perez - Last Filed: 08/31/18 11:09> (1) Ileus, postoperative Status: Acute Code(s): K91.89 - Other postprocedural complications and disorders of digestive system; K56.7 - Ileus, unspecified Current Visit: Yes (2) Vomiting Status: Acute Code(s): R11.10 - Vomiting, unspecified Qualifiers: Vomiting type: bilious vomiting Nausea presence: with nausea Qualified Code(s): R11.14 - Bilious vomiting Current Visit: Yes - Time Spent With Patient Total time spent is greater than 50% in coordination of care (as documented) at patient's floor/unit and/or counseling patient: less than 15 minutes (physical exam by cynthia ROSARIO) <Fang Fleming - Last Filed: 08/31/18 11:18> Subjective Interval history: Documentation of this patient encounter should include: * Reason for the encounter * Relevant history <Hasmukh Perez - Last Filed: 08/31/18 11:09> Physical Exam Vital signs: Temp Pulse Resp BP Pulse Ox 98.7 F 83 18 167/86 H 96 08/31/18 07:58 08/31/18 07:58 08/31/18 07:58 08/31/18 07:58 08/31/18 07:58 <Hasmukh Perez - Last Filed: 08/31/18 11:09> Vital signs: Temp Pulse Resp BP Pulse Ox 98.7 F 83 18 167/86 H 96 08/31/18 07:58 08/31/18 07:58 08/31/18 07:58 08/31/18 07:58 08/31/18 07:58 - Constitutional no acute distress - Routine Respiratory Exam Comments: CTA bilateral anterior lobes and upper posterior crackles bilateral posterior lower lobes - Routine Cardiovascular Exam Present: RRR, S1, S2 - Routine Abdominal Exam Present: soft (healing incisions with steri strips), normoactive bowel sounds - Detailed Neurological Exam: Coma Scale Eye Opening: Spontaneous Verbal Response: Oriented <Fang Fleming - Last Filed: 08/31/18 11:18> Results - Labs CBC & Chem 7: 08/28/18 03:04 08/29/18 11:02 Labs: Laboratory Results - last 24 hr 08/29/18 12:00 Stool C.difficile Ag Negative Stool C.difficile Toxin Negative <Hasmukh Perez - Last Filed: 08/31/18 11:09> - Labs CBC & Chem 7: 08/28/18 03:04 08/29/18 11:02 <Fang Fleming - Last Filed: 08/31/18 11:18>
--- NOTE | 2018-08-31 10:11 | P.PNGI ---
Subjective Interval history: Overall she is better. No nausea or vomiting. Liquid to semi-formed stools. No bleeding noted. No significant abdominal pain. She denies chest pain, palpitations or fever or chills Physical Exam Vital signs: Vital Signs 08/30/18 12:00 08/30/18 16:00 08/30/18 20:00 Temperature 98.4 F 98.4 F 98.6 F Pulse Rate 82 78 88 Respiratory Rate 18 18 18 Blood Pressure 152/80 H 155/76 H 159/79 H Pulse Oximetry 96 95 95 08/31/18 00:00 08/31/18 04:00 08/31/18 07:37 Temperature 98 F 98.2 F Pulse Rate 77 82 Respiratory Rate 18 18 12 Blood Pressure 160/74 H 147/71 H Pulse Oximetry 97 97 08/31/18 07:58 Temperature 98.7 F Pulse Rate 83 Respiratory Rate 18 Blood Pressure 167/86 H Pulse Oximetry 96 Intake & Output 08/30/18 08/31/18 08/31/18 18:59 06:59 18:59 Intake Total 1570 / 1570 1552 / 1552 1110 / 1110 Balance 1570 / 1570 1552 / 1552 1110 / 1110 Intake: IV 1210 / 1210 1110 / 1110 1110 / 1110 KCl Inj 20 MEQ In 1/2 Normal 1010 / 1010 1010 / 1010 1010 / 1010 Saline Inj 1,000 ML @ 150 mls/ hr IV.CONT .Q6H44M VISHNU Rx#: [id number] Flagyl 500 MG Inj 100 ML @ 100 200 / 200 100 / 100 100 / 100 mls/hr IV.SIG Q8H VISHNU Rx#: [id number] Oral 360 / 360 442 / 442 Other: # Voids 4 Date of Last Bowel Movement 08/29/18 08/30/18 08/30/18 - Constitutional no acute distress - Routine Neck Exam Present: supple - Routine Abdominal Exam Present: soft, normoactive bowel sounds. Absent: tenderness, distended, rebound - Routine Extremities Exam Absent: cyanosis - Routine Skin Exam Present: intact - Routine Neurological Exam Present: alert, oriented X3 Results - Labs CBC & Chem 7: 08/28/18 03:04 08/29/18 11:02 Assessment and Plan - Attending Attestation IMPRESSION: 1. Abnormal CT scan -there is a partial small-bowel obstruction. Clinically she is better 2. Clostridium difficile positive stools. 3. Nausea, vomiting, and diarrhea. Better 4. History of colon polyps 5. Recent abdominal surgery. 6. History of frequent antibiotic usage for her urinary tract infections. 7. Patient also states that her brother may have had C. difficile colitis RECOMMENDATIONS: 1. Continue IV Flagyl for now. If she tolerates her diet will consider switching to p.o. vancomycin or Dificid 2. Okay to advance to pured [id number] 3. Hold off an NG since she has improved 4. If symptoms worsen, we will have to get a general surgeon
[2018-08-31] MEDS: Zolpidem Tartrate 5 MG Tablet PO PRN (20:55)
--- NOTE | 2018-09-01 06:32 | P.PNOB ---
Progress Note: A/P - Plan 73-year-old female admitted for partial small bowel obstruction, status post LAVH, RSO on 08/22/2018 HD #5 1. Small bowel obstruction: Is my first time meeting pt, seems very well and improved from what was reported to me, following GI recs,potentially discharge home in the next 24 hours if continues to progress. Pt aware of need to FU with GI after d/c. 2. C. Diff: Continue IV antibiotics, likely switch to p.o. today. - Time Spent With Patient less than 15 minutes Subjective Interval history: Documentation of this patient encounter should include: * Reason for the encounter * Relevant history Doing well, tolerating soft diet no nausea or vomiting, + small BM and flatus, no diarrhea Physical Exam Vital signs: Temp Pulse Resp BP Pulse Ox 97.6 F 87 20 161/79 H 95 09/01/18 00:00 09/01/18 00:00 09/01/18 00:00 09/01/18 00:00 09/01/18 00:00 - Constitutional no acute distress - Routine Respiratory Exam Present: CTA bilaterally - Routine Abdominal Exam Present: soft, normoactive bowel sounds Results - Labs CBC & Chem 7: 08/28/18 03:04 08/29/18 11:02
[2018-09-01] MEDS: Famotidine 20 MG Tablet PO SCH ×2 (09:03→21:25)
[2018-09-01 09:17] VITALS: RESP 20
--- NOTE | 2018-09-01 11:54 | P.PNGI ---
Subjective Interval history: Patient tolerated her pured diet well. Stools are forming up. No nausea, vomiting or abdominal pain or bleeding Physical Exam Vital signs: Vital Signs 08/31/18 12:00 08/31/18 15:55 08/31/18 16:00 Temperature 98.1 F 97.8 F Pulse Rate 94 H 86 Respiratory Rate 20 12 18 Blood Pressure 158/84 H 165/86 H Pulse Oximetry 96 97 08/31/18 20:00 09/01/18 00:00 09/01/18 04:00 Temperature 98.1 F 97.6 F 98.7 F Pulse Rate 89 87 82 Respiratory Rate 17 20 16 Blood Pressure 164/84 H 161/79 H 140/70 Pulse Oximetry 95 95 09/01/18 08:00 Temperature 97.8 F Pulse Rate 77 Respiratory Rate 20 Blood Pressure 160/76 H Pulse Oximetry 96 Intake & Output 08/31/18 09/01/18 09/01/18 18:59 06:59 18:59 Intake Total 1630 / 1630 100 / 100 100 / 100 Balance 1630 / 1630 100 / 100 100 / 100 Weight 80.2 kg Intake: IV 1510 / 1510 100 / 100 100 / 100 KCl Inj 20 MEQ In 1/2 Normal 1310 / 1310 Saline Inj 1,000 ML @ 150 mls/ hr IV.CONT .Q6H44M VISHNU Rx#: [id number] Flagyl 500 MG Inj 100 ML @ 100 200 / 200 100 / 100 100 / 100 mls/hr IV.SIG Q8H VISHNU Rx#: [id number] Oral 120 / 120 Other: # Voids 3 Date of Last Bowel Movement 08/30/18 08/30/18 08/30/18 # Bowel Movements 0 - Constitutional no acute distress - Routine HEENT Exam ENT: Present: mucous membranes moist - Routine Neck Exam Present: supple - Routine Cardiovascular Exam Present: RRR - Routine Abdominal Exam Present: soft, normoactive bowel sounds. Absent: tenderness - Routine Neurological Exam Present: alert Results - Labs CBC & Chem 7: 08/28/18 03:04 08/29/18 11:02 Assessment and Plan - Attending Attestation IMPRESSION: 1. Abnormal CT scan -there is a partial small-bowel obstruction. Patient much improved. She is tolerating diet 2. Clostridium difficile positive stools-improved clinically 3. Nausea, vomiting, and diarrhea. Resolved 4. History of colon polyps 5. Recent abdominal surgery. 6. History of frequent antibiotic usage for her urinary tract infections. 7. Patient also states that her brother may have had C. difficile colitis RECOMMENDATIONS: 1. Change to p.o. vancomycin 2. Continue diet 3. If she tolerates the p.o. vancomycin she can probably be discharged tomorrow. She should be on vancomycin for a total of 10 days
[2018-09-01] MEDS: Zolpidem Tartrate 5 MG Tablet PO PRN (22:11)
[2018-09-02 05:04] VITALS: PULSE 79
--- NOTE | 2018-09-02 08:17 | P.PNOB ---
Progress Note: A/P - Plan 73-year-old female admitted for partial small bowel obstruction, status post LAVH, RSO on 08/22/2018 HD #6 1. Small bowel obstruction: pt continues to improve, able to tolerate PO meds and regular diet, ready for d/c home. Pt aware of need to FU with GI after d/c. 2. C. Diff: D/c with PO vanc x 10 days. - Time Spent With Patient Total time spent is greater than 50% in coordination of care (as documented) at patient's floor/unit and/or counseling patient: less than 15 minutes Subjective Interval history: Documentation of this patient encounter should include: * Reason for the encounter * Relevant history Doing well, tolerating regular diet, no nausea or vomiting, Physical Exam Vital signs: Temp Pulse Resp BP Pulse Ox 98.3 F 79 20 161/78 H 99 09/02/18 04:00 09/02/18 04:00 09/02/18 04:00 09/02/18 04:00 09/02/18 04:00 - Constitutional no acute distress - Routine Respiratory Exam Present: CTA bilaterally - Routine Abdominal Exam Present: soft, normoactive bowel sounds Results - Labs CBC & Chem 7: 08/28/18 03:04 08/29/18 11:02
--- NOTE | 2018-09-02 09:06 | P.DS ---
Date of admission: 08/28/18 04:29 Primary care physician: Arsenio Mathur MD Brief History from admission: 73-year-old female admitted for partial small bowel obstruction status post LAVH , RSO on 08/22/2018 and also diagnosed with C. difficile colitis, GI was consulted for assistance, she was managed conservatively for small bowel obstruction and treated with vancomycin for C. difficile, she is serially improved and on hospital day 6 was meeting all of her milestones. And prepared for discharge home. DS: Medications - Discharge Medications Prescriptions: vancomycin [Vancocin] 125 mg PO QID 10 Days #40 cap DS: Summary Hospital Course: See brief history - Time Spent with Patient Total time spent providing and/or coordinating discharge services: Less than 30 minutes - Quality: VTE Deep Vein Thrombosis/Pulmonary Embolism Present on Admission: No Exam Vital signs: Vital Signs 09/01/18 12:00 09/01/18 16:00 09/01/18 20:00 Temperature 97.7 F 98.0 F 97.6 F Pulse Rate 95 H 87 100 H Respiratory Rate 20 20 20 Blood Pressure 179/87 H 167/83 H 122/75 Pulse Oximetry 97 96 96 09/02/18 00:00 09/02/18 04:00 Temperature 98.2 F 98.3 F Pulse Rate 93 H 79 Respiratory Rate 20 20 Blood Pressure 157/72 H 161/78 H Pulse Oximetry 98 99 Intake & Output 09/01/18 09/02/18 09/02/18 18:59 06:59 18:59 Intake Total 1600 / 1600 Balance 1600 / 1600 Intake: IV 100 / 100 Flagyl 500 MG Inj 100 ML @ 100 100 / 100 mls/hr IV.SIG Q8H VISHNU Rx#: [id number] Oral 1500 / 1500 Other: # Voids 6 1 Date of Last Bowel Movement 09/01/18 09/01/18 # Bowel Movements 1 Results Procedures completed during hospitalization: None - Impressions ITS Impressions Abdomen X-Ray 08/28/18 04:18 CONCLUSION: Pneumoperitoneum as above. CT scan is recommended if clinically indicated. Abdomen/Pelvis CT 08/28/18 07:12 CONCLUSION: 1. Findings most consistent with partial small bowel obstruction with transition points in the very proximal jejunum and mid to distal ileum, potentially due to adhesions. 2. There is a small amount of intraperitoneal free air, presumably postsurgical. No pneumatosis, focal drainable fluid collections or significant ascites. Correlation is recommended. 3. Mild airspace consolidation in the right lung base, presumably atelectasis. 4. Additional stable ancillary findings, as above. Discharge Plan - Discharge Disposition Patient Disposition: 01 Discharge Home - Discharge Condition Condition: Good - Physicians Team Primary Care Provider: Arsenio Mathur Attending Provider: Arsenio Mathur Other Providers: Anthony Atkinson MD
[2018-09-02] MEDS: Famotidine 20 MG Tablet PO SCH (09:56)
[2018-09-02 10:26] VITALS: BP 157/78; TEMP 97.8; O2SAT 95
== END 2018-09-02 14:24 | disposition home or self-care (01) ==
LOC: NEPC 02:19 → NEDA 02:19 → NEPHCDU 14:20 → N05 18:53
PROVIDERS: ADMIT Obstetrics & Gynecology; ATTEND Obstetrics & Gynecology
DX: E87.6 Hypokalemia; E73.9 Lactose intolerance, unspecified; M81.0 Age-related osteoporosis without current pathological fracture; A04.72 Enterocolitis due to Clostridium difficile, not specified as recurrent; K56.51 Intestinal adhesions [bands], with partial obstruction; R12 Heartburn; Z90.710 Acquired absence of both cervix and uterus